=== PATIENT | male | born 1945 | race African-American/Black ===

== ENCOUNTER 2023-01-22 08:08 | Inpatient (IN) ==
--- NOTE | 2023-01-22 08:19 | DR.CP ---
HPI Time Seen Time Seen by Provider: 01/22/23 08:19 HPI Comment HPI Comment: PATIENT IS 77YR OLD MALE IN ER WITH HIS Complaint Chief Complaint Doctor Comments: SOB, GENERALIZED WEAKNESS. COVID-19 Coronavirus risk:travel/contact w/high risk person: No Has patient experienced Coronavirus symptoms: No Reviewed Nurses Notes Review: Yes PMH PMH Past Surgical History: Yes ROS Review of Systems Constitutional: Weakness and Fatigue; negative Fever Eyes: No Symptoms Reported; negative Blurred Vision ENTM: No Symptoms Reported; negative Nose Discharge or Nose Congestion Respiratoy: Short of Breath; negative Moist Cough or Wheezing Cardiovascular: No Symptoms Reported; negative Chest Pain Gastrointestinal/Abdominal: No Symptoms Reported; negative Abdominal Pain, Diarrhea, Nausea or Vomiting Genitourinary: No Symptoms Reported; negative Dysuria Musculoskeletal: Leg (LEG PAIN) Integumentary: No Symptoms Reported; negative Rash or Juandice Hematologic/Lymphatic: No Symptoms Reported; negative Easy Bruising Endocrine: Increased Thirst; negative Increased Urine Psychiatric: No Symptoms Reported All Other Systems: Reviewed and Negative PE Vitals Vitals: Vital Signs Temperature 97.8 F Pulse Rate 70 Pulse Rate 70 Pulse Rate 66 Pulse Rate 68 Pulse Rate 69 Pulse Rate 63 Pulse Rate 65 Pulse Rate 66 Pulse Rate 69 Pulse Rate 71 Pulse Rate 74 Pulse Rate 75 Pulse Rate 75 Pulse Rate 75 Pulse Rate 77 Pulse Rate 76 Pulse Rate 82 Pulse Rate 80 Pulse Rate 79 Pulse Rate 81 Pulse Rate 79 Pulse Rate 78 Pulse Rate 79 Pulse Rate 79 Pulse Rate 79 Pulse Rate 80 Pulse Rate 81 Pulse Rate 84 Pulse Rate 87 Pulse Rate 86 Pulse Rate 86 Pulse Rate 86 Pulse Rate 90 Pulse Rate 90 Pulse Rate 92 Pulse Rate 92 Pulse Rate 92 Pulse Rate 94 Pulse Rate 93 Pulse Rate 93 Pulse Rate 93 Pulse Rate 94 Pulse Rate 94 Pulse Rate 96 Pulse Rate 96 Respiratory Rate 24 Respiratory Rate 26 Respiratory Rate 22 Respiratory Rate 24 Respiratory Rate 10 Respiratory Rate 10 Respiratory Rate 11 Respiratory Rate 11 Respiratory Rate 10 Respiratory Rate 14 Respiratory Rate 16 Respiratory Rate 15 Respiratory Rate 29 Respiratory Rate 14 Respiratory Rate 22 Respiratory Rate 20 Respiratory Rate 30 Respiratory Rate 44 Respiratory Rate 52 Respiratory Rate 49 Respiratory Rate 38 Respiratory Rate 20 Respiratory Rate 17 Respiratory Rate 31 Respiratory Rate 18 Respiratory Rate 34 Respiratory Rate 24 Respiratory Rate 24 Respiratory Rate 31 Respiratory Rate 24 Respiratory Rate 28 Respiratory Rate 23 Respiratory Rate 30 Respiratory Rate 23 Respiratory Rate 27 Respiratory Rate 22 Respiratory Rate 25 Respiratory Rate 22 Respiratory Rate 16 Respiratory Rate 19 Respiratory Rate 26 Respiratory Rate 27 Respiratory Rate 28 Respiratory Rate 28 Respiratory Rate 28 Blood Pressure 131/67 Blood Pressure 95/55 Blood Pressure 96/56 Blood Pressure 87/50 Blood Pressure 99/56 Blood Pressure 107/56 Blood Pressure 106/53 Blood Pressure 106/53 Blood Pressure 100/48 Blood Pressure 100/48 Blood Pressure 112/57 Blood Pressure 106/55 Blood Pressure 103/68 Blood Pressure 101/58 Blood Pressure 103/61 Blood Pressure 108/53 Blood Pressure 103/57 Blood Pressure 99/63 Blood Pressure 120/71 Blood Pressure 116/66 Blood Pressure 112/57 Blood Pressure 116/56 Blood Pressure 111/56 Blood Pressure 115/63 Blood Pressure 108/57 Blood Pressure 100/55 Blood Pressure 127/57 Blood Pressure 114/61 Blood Pressure 109/56 Blood Pressure 112/57 Blood Pressure 113/61 Blood Pressure 118/61 Blood Pressure 121/60 Blood Pressure 115/57 Blood Pressure 115/57 O2 Sat by Pulse Oximetry 93 O2 Sat by Pulse Oximetry 89 O2 Sat by Pulse Oximetry 98 O2 Sat by Pulse Oximetry 98 O2 Sat by Pulse Oximetry 97 O2 Sat by Pulse Oximetry 100 O2 Sat by Pulse Oximetry 97 O2 Sat by Pulse Oximetry 100 O2 Sat by Pulse Oximetry 100 O2 Sat by Pulse Oximetry 100 O2 Sat by Pulse Oximetry 100 O2 Sat by Pulse Oximetry 95 O2 Sat by Pulse Oximetry 95 O2 Sat by Pulse Oximetry 94 O2 Sat by Pulse Oximetry 93 O2 Sat by Pulse Oximetry 92 O2 Sat by Pulse Oximetry 91 O2 Sat by Pulse Oximetry 92 O2 Sat by Pulse Oximetry 93 O2 Sat by Pulse Oximetry 93 O2 Sat by Pulse Oximetry 93 O2 Sat by Pulse Oximetry 92 O2 Sat by Pulse Oximetry 93 O2 Sat by Pulse Oximetry 93 O2 Sat by Pulse Oximetry 93 O2 Sat by Pulse Oximetry 59 O2 Sat by Pulse Oximetry 93 O2 Sat by Pulse Oximetry 94 O2 Sat by Pulse Oximetry 93 O2 Sat by Pulse Oximetry 93 O2 Sat by Pulse Oximetry 93 O2 Sat by Pulse Oximetry 92 O2 Sat by Pulse Oximetry 88 O2 Sat by Pulse Oximetry 85 O2 Sat by Pulse Oximetry 84 General Limitations: No Limitations General Appearance: Alert and In Distress Head Head Exam: Normal Inspection Eyes Eye exam: Normal Appearance ENT ENT Exam: Normal Exam, Normal Oropharynx, Normal External Ear Exam and TM's Normal Bilaterally Chest Chest Inspection: Normal Inspection and Symmetric Chest Wall Rise; negative Tenderness Respiratory Respiratory Exam: Normal Lung Sounds Bilat; negative Accessory Muscle Use, Chest Wall Tenderness or Respiratory Distress Respiratory Exam: Bilateral: Rhonchi Cardiovascular Cardiovascular Exam: Regular Rate, Normal Rhythm and Normal Heart Sounds; negative Systolic Murmur or Diastolic Murmur Abdominal Exam Abdominal Exam: Normal Inspection, Normal Bowel Sounds and Soft; negative Tenderness Extremities Extremities Exam: Normal Inspection and Normal Capillary Refill Back Back Exam: Normal Inspection Neurologic Neurological Exam: Alert; negative Motor Sensory Deficit Psychiatric Psychiatric Exam: Normal Affect and Normal Mood Skin Skin Exam: Intact ROR Labs Reviewed Result Diagrams: 01/26/23 03:41 01/26/23 03:41 Laboratory: 01/22/23 08:55 Blood Blood Culture - Final 01/22/23 08:27 Blood Blood Culture - Final 01/22/23 12:50 Urine,Catheterized Urine Culture - Final WBC 9.1 X10^3/uL (3.6-10.0) 01/22/23 08:27 RBC 3.68 X10^6/uL (4.7-6.0) L 01/22/23 08:27 Hgb 11.0 g/dL (13.5-18.0) L 01/22/23 08:27 Hct 32.7 % (42.0-54.0) L 01/22/23 08:27 MCV 89.0 fL (80.0-100.0) 01/22/23 08:27 MCH 30.0 pg (27.0-34.0) 01/22/23 08:27 MCHC 33.7 g/dL (33.0-35.0) 01/22/23 08:27 RDW 14.1 % (11.6-16.5) 01/22/23 08:27 Plt Count 192 X10^3/uL (150.0-450.0) 01/22/23 08:27 MPV 8.7 fL (7.4-11.0) 01/22/23 08:27 Neut % (Auto) 87.5 % (42.0-75.0) H 01/22/23 08:27 Lymph % (Auto) 5.2 % (21.0-51.0) L 01/22/23 08:27 [place] % (Auto) 6.1 % (0.0-13.0) 01/22/23 08:27 Eos % (Auto) 1.0 % (0.9-2.9) 01/22/23 08:27 Baso % (Auto) 0.2 % (0.2-1.0) 01/22/23 08:27 Neut # (Auto) 8.0 x10^3/uL (2.2-4.8) H 01/22/23 08:27 Lymph # (Auto) 0.5 X10^3/uL (1.3-2.9) L 01/22/23 08:27 [place] # (Auto) 0.6 x10^3/uL (0.3-0.8) 01/22/23 08:27 Eos # (Auto) 0.1 x10^3/uL (0.0-0.2) 01/22/23 08:27 Baso # (Auto) 0.0 X10^3/uL (0.0-0.1) 01/22/23 08:27 Absolute Nucleated RBC 0.0 /100WBC 01/22/23 08:27 Sample Site Rbra 01/22/23 08:17 ABG pH 7.440 (7.35-7.45) 01/22/23 08:17 ABG pCO2 31.0 mmHg (35.0-45.0) L 01/22/23 08:17 ABG pO2 48.0 mmHg (80.0-100.0) L* 01/22/23 08:17 ABG HCO3 21.1 mmol/L (22-26) L 01/22/23 08:17 ABG O2 Saturation 85.0 % (90-100) L 01/22/23 08:17 ABG Base Excess -2.2 mmol/L (-2.0-2.0) L 01/22/23 08:17 Daryl Test N/a 01/22/23 08:17 A-a Gradient 63.0 mmHg 01/22/23 08:17 FiO2 21.0 01/22/23 08:17 Blood Gas Comments Pt liang well elj 01/22/23 08:17 Sodium 132 mmol/L (136-145) L 01/22/23 08:27 Corrected Sodium 133 mmol/L (136-145) L 01/22/23 08:27 Potassium 4.6 mmol/L (3.5-5.1) 01/22/23 08:27 Chloride 95 mmol/L (98-107) L 01/22/23 08:27 Carbon Dioxide 22.4 mmol/L (21-32) 01/22/23 08:27 BUN 103 mg/dL (7-18) H 01/22/23 08:27 Creatinine 5.61 mg/dL (0.70-1.30) H 01/22/23 08:27 Est GFR (MDRD) Af Amer 13 (>60) L 01/22/23 08:27 Est GFR (MDRD) Non-Af 11 (>60) L 01/22/23 08:27 Glucose 127 mg/dL (65-99) H 01/22/23 08:27 Lactic Acid 1.4 mmol/L (0.4-2.0) 01/22/23 08:27 Calcium 8.1 mg/dL (8.5-10.1) L 01/22/23 08:27 Corrected Calcium 8.7 mg/dL (8.5-10.1) 01/22/23 08:27 Total Bilirubin 0.90 mg/dL (0.2-1.0) 01/22/23 08:27 AST 42 Units/L (15-37) H 01/22/23 08:27 ALT 17 Units/L (12-78) 01/22/23 08:27 Alkaline Phosphatase 69 Units/L (46-116) 01/22/23 08:27 Creatine Kinase 1051 Units/L (39-308) H 01/22/23 08:27 Troponin I High Sens 57.8 ng/L (4.0-60.0) 01/22/23 08:27 B-Natriuretic Peptide 38.2 pg/mL (0-79) 01/22/23 08:27 Total Protein 7.1 g/dL (6.4-8.2) 01/22/23 08:27 Albumin 3.2 g/dL (3.4-5.0) L 01/22/23 08:27 Globulin 3.9 g/dL (2.5-4.5) 01/22/23 08:27 Albumin/Globulin Ratio 0.8 Ratio (1.1-2.1) L 01/22/23 08:27 Specimen Type Catherized urine 01/22/23 12:50 Urine Color Dark yellow (YELLOW) 01/22/23 12:50 Urine Appearance Cloudy (CLEAR) 01/22/23 12:50 Urine pH 5.0 (5.0 - 8.0) 01/22/23 12:50 Ur Specific [place] 1.020 (1.000-1.030) 01/22/23 12:50 Urine Protein 2+ (NEGATIVE) 01/22/23 12:50 Urine Glucose (UA) Negative (NEGATIVE) 01/22/23 12:50 Urine Ketones Negative (NEGATIVE) 01/22/23 12:50 Urine Blood 5+ (NEGATIVE) 01/22/23 12:50 Urine Nitrite Negative (NEGATIVE) 01/22/23 12:50 Urine Bilirubin Negative (NEGATIVE) 01/22/23 12:50 Urine Urobilinogen Normal (NORMAL) 01/22/23 12:50 Ur Leukocyte Esterase 1+ (NEGATIVE) 01/22/23 12:50 Urine RBC Tntc /HPF (0-3) A 01/22/23 12:50 Urine WBC 5-10 /HPF (0-5) A 01/22/23 12:50 Ur Squamous Epith Cells Few /HPF (NEGATIVE) 01/22/23 12:50 Urine Bacteria Trace /HPF (NEGATIVE) 01/22/23 12:50 Urine Mucus Few /HPF (NEGATIVE) 01/22/23 12:50 Ur Culture Indicated? Yes/culture set up 01/22/23 12:50 Opioid Opioid Risk Tool Total: 0 Total Score Risk Category: Low Risk Copyright: Kd BALES predicting aberrant behaviors Discharge Plan Diagnosis Discharge Problem: Hypoxia Acute renal failure Qualifiers: Acute renal failure type: unspecified Qualified Code(s): N17.9 - Acute kidney failure, unspecified Rhabdomyolysis Qualifiers: Rhabdomyolysis type: non-traumatic Qualified Code(s): M62.82 - Rhabdomyolysis Maxillary sinusitis Qualifiers: Chronicity: acute Recurrence: not specified as recurrent Qualified Code(s): J01.00 - Acute maxillary sinusitis, unspecified Discharge Plan Patient Disposition: ADMITTED INPATIENT Condition: Stable
[2023-01-22 08:28] LABS: ABG BASE EXCESS -2.2 mmol/L (-2.0-2.0); ABG HCO3 21.1 mmol/L (22-26)
--- NOTE | 2023-01-22 08:36 | EKG ---
Test Reason : sHORT OF BREATH Blood Pressure : */* mmHG Vent. Rate : 92 BPM Atrial Rate : 92 BPM P-R Int : 178 ms QRS Dur : 104 ms QT Int : 322 ms P-R-T Axes : 36 40 7 degrees QTc Int : 398 ms Normal sinus rhythm Minimal voltage criteria for LVH, may be normal variant ( Vesper product ) Borderline ECG No previous ECGs available Confirmed by Edson Tompkins ([id number]) on 01/22/2023 12:52:48 PM Referred By: Confirmed By: Edson Tompkins
[2023-01-22 09:00] LABS: BASOPHILS % (AUTO) 0.2 % (0.2-1.0); EOSINOPHILS # (AUTO) 0.1 x10^3/uL (0.0-0.2); HEMATOCRIT 32.7 % (42.0-54.0); LYMPHOCYTES # (AUTO) 0.5 X10^3/uL (1.3-2.9); LYMPHOCYTES % (AUTO) 5.2 % (21.0-51.0); MEAN CORPUSCULAR HGB CONC 33.7 g/dL (33.0-35.0); MEAN PLATELET VOLUME 8.7 fL (7.4-11.0); MONOCYTES # (AUTO) 0.6 x10^3/uL (0.3-0.8); MONOCYTES % (AUTO) 6.1 % (0.0-13.0); NEUTROPHILS % (AUTO) 87.5 % (42.0-75.0); PLATELET COUNT 192 X10^3/uL (150.0-450.0); RED BLOOD COUNT 3.68 X10^6/uL (4.7-6.0); RED CELL DISTRIBUTION WIDTH 14.1 % (11.6-16.5); WHITE BLOOD COUNT 9.1 X10^3/uL (3.6-10.0)
[2023-01-22 09:14] LABS: LACTIC ACID 1.4 mmol/L (0.4-2.0)
[2023-01-22 09:24] LABS: ALBUMIN 3.2 g/dL (3.4-5.0); CALCIUM 8.1 mg/dL (8.5-10.1); CARBON DIOXIDE 22.4 mmol/L (21-32); COR CA(FOR HYPOALB) 8.7 mg/dL (8.5-10.1); CREATININE 5.61 mg/dL (0.70-1.30); POTASSIUM 4.6 mmol/L (3.5-5.1); TOTAL PROTEIN 7.1 g/dL (6.4-8.2)
[2023-01-22] MEDS ORDERED: NORCO 10/325 TAB PO ONE (09:58)
[2023-01-22] MEDS ORDERED: NORCO 10/325 TAB ONE (09:59)
--- NOTE | 2023-01-22 10:42 | CT ---
HISTORYAltered mental statusSTUDYCT head without contrastTechnique: Axial noncontrast images with coronal and sagittal reformats. Dose reduction procedures were used with mA/kv adjusted for body size.COMPARISONNoneFINDINGSThe ventricles are normal in size shape and position. There are no focal areas of abnormal attenuation to suggest recent or remote CVA, hemorrhage, mass lesion, or extra-axial fluid collection. The visualized sinuses are clear with the exception of mucosal inflammatory changes in the left maxillary sinus within which there is also a 3.2 x 1.7 cm masslike density containing some areas of increased attenuation possibly calcification possibly fungal sinusitis. MRI is recommended in order to entirely exclude a left maxillary sinus neoplasm. The calvarium is intact.IMPRESSIONNo acute intracranial abnormality identifiedMucosal changes in the left maxillary sinus where there is also a 3.2 x 1.7 cm masslike density containing some areas of increased attenuation possibly calcification, possibly fungal sinusitis. MRI is recommended in order to entirely exclude a left maxillary sinus neoplasm.Electronically signed by: ANKIT ARCE (Jan 22, 2023 10:41:31)
--- NOTE | 2023-01-22 10:52 | RAD ---
HISTORYSOB Relevant Clinical InformationSTUDYCHEST, 1 VIEWCOMPARISONNone availableFINDINGSThe trachea is midline. There is mild cardiomegaly. There is patchy ground-glass radiopacities in the bases right more than left at the perihilar region. There is subcutaneous emphysema in the right supraclavicular region, no evidence of pneumothorax or pleural effusions.IMPRESSIONRight supraclavicular subcutaneous emphysema. No pneumothorax. Patchy radiopacities at the right lower lobe in the perihilar region.Electronically signed by: Sherlyn Owens (Jan 22, 2023 10:51:38)
[2023-01-22] MEDS ORDERED: NS 1,000 ML IV 1,000 ML ONE (12:09)
[2023-01-22] MEDS ORDERED: NS 1,000 ML IV 1,000 ML IV ONE (12:14)
[2023-01-22] MEDS ORDERED: ROCEPHIN VIAL 1 GRAM 1 G in NS 100 ML IV 100 ML IV ONE (12:35)
[2023-01-22] MEDS ORDERED: ROCEPHIN VIAL 1 GRAM ONE (12:38)
[2023-01-22] MEDS ORDERED: NS 50 ML IV 50 ML IV ONE (12:38)
[2023-01-22 12:59] LABS: BILIRUBIN,URINE NEGATIVE (NEGATIVE); BLOOD/HEMOGLOBIN,URINE 5+ (NEGATIVE); GLUCOSE, URINE NEGATIVE (NEGATIVE); KETONES,URINE NEGATIVE (NEGATIVE); LEUKOCYTE ESTERASE ,URINE 1+ (NEGATIVE); NITRITES,URINE NEGATIVE (NEGATIVE); PROTEIN,URINE 2+ (NEGATIVE); UROBILINOGEN,URINE NORMAL (NORMAL)
[2023-01-22 13:23] LABS: APPEARANCE,URINE CLOUDY (CLEAR); COLOR,URINE DARK YELLOW (YELLOW)
[2023-01-22 13:26] LABS: BACTERIA,URINE TRACE /HPF (NEGATIVE); RBC,URINE TNTC /HPF (0-3); SQUAMOUS EPITHELIAL CELL,UR FEW /HPF (NEGATIVE)
--- NOTE | 2023-01-22 14:44 | CT ---
HISTORYsubcutaneous emphysema, back sx 4 days ago. Hypertension. Renal disease.STUDYSOFT TISSUE NECK W/O CONCOMPARISONNoneTECHNIQUEMultiple axial images of the neck soft tissues were obtained without IV contrast. Coronal and sagittal reformats were made and reviewed. Dose reduction techniques included Automated Exposure Control (AEC) and adjustment of mA and kV.FINDINGSThere is emphysema in the right neck in superficial and deep structures. Mostly located posteriorly deep to the sternocleidomastoid muscle extending into the right axilla but also superficially in the subcutaneous tissue in the right. The finding is likely from the patient's prior surgery.A trace amount air anterior left apex is probably extrapleural rather than within the pleural space. See image 109 series 3.Adenoids, soft palate, tonsils, epiglottis, and prevertebral soft tissues are not enlarged.There is preservation of the pharyngeal and tracheal airway. Vocal cords are apposed in the midline.Parotid glands, submandibular glands, and thyroid are unremarkable. No mass or lymphadenopathy.Partially calcified polyp in the left maxillary sinus could be fungal in origin. This is associated with mucosal thickening in the sinus. No fluid to suggest acute sinusitis.IMPRESSION1. Subcutaneous tissue throughout the right neck and upper right chest, likely from the patient's previous surgery2. Chronic left maxillary sinusitis with probable polypElectronically signed by: Stanford Morelos (Jan 22, 2023 14:42:56)
--- NOTE | 2023-01-22 14:45 | CT ---
HISTORYSubcutaneous emphysemaSTUDYCT chest without contrastTechnique: Axial noncontrast images with coronal and sagittal reformats. Dose reduction procedures were used with mA/kv adjusted for body size.COMPARISONNoneFINDINGSExamination of the mediastinum demonstrated no evidence for mediastinal masses, enlarged mediastinal or enlarged hilar adenopathy to the limitations of an unenhanced examination. There is dilatation of the ascending aorta maximum AP diameter 4.5 cm. Maximum transverse diameter 4 cm. The heart is enlarged. No pleural effusions are identified. There is subcutaneous emphysema involving the right chest anteriorly, laterally and posteriorly and extending upward into the right neck. The etiology of the subcutaneous emphysema is a small less than 20 percent anteriorly layering pneumothorax. The upper lung bolaños are clear. Consolidating pneumonia is present in both lower lobes right greater than left. No nodules or masses are identified.[id number] percent anteriorly layering right pneumothorax likely the etiology of the right chest wall and neck subcutaneous emphysemaBilateral lower lobe consolidating pneumoniasDilatation of the ascending aorta maximum AP diameter 4.5 cm, maximum transverse diameter 4 cmElectronically signed by: ANKIT ARCE (Jan 22, 2023 14:44:49)
--- NOTE | 2023-01-22 14:54 | CT ---
ABDOMEN/PELVIS W/O CONHistory: "Subcutaneous emphysema, back sx 4 days ago"Technique: CT images of the abdomen and pelvis were obtained without IV or oral contrast. Reformatted images in the coronal and sagittal planes also generated for review. Automatic exposure was utilized.Comparison:No prior exams are available for comparison.Findings: Limited images through the lower chest demonstrate moderate subsegmental atelectasis, with or without superimposed pneumonia of the imaged dependent lower lobes. Partially visualized right basilar pneumothorax also seen. Please refer to the patient's CT chest report for findings above the diaphragm. Previous fusion and interbody spacer placement of the lumbosacral spine noted.Please note that evaluation for soft tissue pathology is limited without IV contrast. Evaluation of the GI tract is also limited without oral contrast.Accounting for this, there is subcutaneous emphysema/soft tissue gas throughout the right paraspinal, right flank, right abdominal wall and imaged right chest wall soft tissues, which given patient history of recent back surgery is presumably postsurgical in nature.There is also small gas along the left psoas muscle as well as small volume fluid as well as gas, which is either intraperitoneal or within the right retroperitoneal space (for example see axial images 26-41 series 3).Within the limits of a noncontrast exam, the unenhanced liver, nondistended gallbladder, spleen, pancreas, adrenals and kidneys demonstrate no acute abnormality. There is no urolithiasis or obstructive uropathy.There are mildly dilated fluid-filled loops of distal small bowel within the lower abdomen, measuring up to 3.3 cm in maximum diameter. No definite transition point is identified and findings are favored to reflect postoperative ileus. The colon and rectum demonstrate no gross acute abnormality.Abdominal aorta is minimally calcified without aneurysm. There is a small amount of gas within the urinary bladder, which is likely related to Wylie catheter placement. Prostate gland is markedly enlarged. The Wylie catheter retention balloon may also be malpositioned, possibly within the prostatic urethra (For example see sagittal image 40). There is no bulky lymphadenopathy.Impression:1. Subcutaneous emphysema and soft tissue gas of the right paraspinal, right flank, right abdominal wall and imaged right chest wall soft tissues, which given provided history of recent back surgery is presumably postsurgical in nature. Superimposed soft tissue infection/cellulitis/necrotizing fasciitis felt less likely but not excluded and clinical correlation is necessary.2. Gas along the left psoas muscle as well as small fluid and gas, which is either intraperitoneal in location or within the right retroperitoneal space as above. These findings are also presumably postsurgical in nature. However, superimposed infection/developing abscess is again not excluded and clinical correlation is necessary.3. Atelectasis, with or without superimposed pneumonia of the imaged lung bases and partially visualized right basilar pneumothorax. Please refer to the patient's CT chest report for findings above the diaphragm.4. Fluid-filled borderline dilated loops of distal small bowel, which are favored to reflect postoperative ileus. However, early/developing distal small bowel obstruction not excluded. Correlation with patient's bowel habits recommended.5. Prostatomegaly. Lab correlation with PSA levels recommended. There is also suspected malpositioning of the patient's Wylie catheter as above. Clinical correlation and repositioning recommended as indicated.6. Please refer to above report for additional nonacute/chronic findings.Electronically signed by: MARLENY SHETH (Jan 22, 2023 14:53:43)
[2023-01-22 15:28] VITALS: BMI 26.6
[2023-01-22] MEDS: NS 1,000 ML IV 1,000 ML IV SCH (15:43)
[2023-01-22] MEDS: NORCO 10/325 TAB PO PRN (19:44)
[2023-01-22] MEDS: MILK OF MAGNESIA PO SCH (20:26)
[2023-01-22] MEDS ORDERED: COLACE CAP 100 MG PO SCH (21:00)
--- NOTE | 2023-01-22 22:29 | RAD ---
STUDY: SINGLE VIEW OF THE ABDOMENCOMPARISON: NoneHISTORY: Reason For StudyFINDINGS:Bowel gas pattern is nonobstructive.There is no gross evidence of free air in the abdomen.There are no abnormal masses or calcification seen.The visualized bones demonstrate degenerative changes with postoperative changes throughout the lumbar spineModerate to large amount of fecal material is seen throughout the GI tract suggesting constipation.IMPRESSION:1. THE BOWEL GAS PATTERN IS NONOBSTRUCTIVE. Electronically signed by: Brody Urbano (Jan 22, 2023 22:27:32)
[2023-01-23] MEDS: NS 1,000 ML IV 1,000 ML IV SCH ×2 (04:00→19:05)
[2023-01-23 05:08] LABS: CALCIUM 8.1 mg/dL (8.5-10.1); CARBON DIOXIDE 24.6 mmol/L (21-32); CREATININE 5.69 mg/dL (0.70-1.30); POTASSIUM 4.5 mmol/L (3.5-5.1)
[2023-01-23 05:09] LABS: BASOPHILS % (AUTO) 0.3 % (0.2-1.0); EOSINOPHILS # (AUTO) 0.3 x10^3/uL (0.0-0.2); HEMATOCRIT 28.1 % (42.0-54.0); HEMOGLOBIN 9.6 g/dL (13.5-18.0); LYMPHOCYTES # (AUTO) 0.7 X10^3/uL (1.3-2.9); MEAN CORPUSCULAR HEMOGLOBIN 30.5 pg (27.0-34.0); MEAN CORPUSCULAR HGB CONC 34.4 g/dL (33.0-35.0); MEAN CORPUSCULAR VOLUME 88.7 fL (80.0-100.0); MEAN PLATELET VOLUME 8.6 fL (7.4-11.0); MONOCYTES # (AUTO) 1.5 x10^3/uL (0.3-0.8); MONOCYTES % (AUTO) 11.6 % (0.0-13.0); NEUTROPHILS # (AUTO) 10.8 x10^3/uL (2.2-4.8); NEUTROPHILS % (AUTO) 81.1 % (42.0-75.0); PLATELET COUNT 189 X10^3/uL (150.0-450.0); RED BLOOD COUNT 3.16 X10^6/uL (4.7-6.0); RED CELL DISTRIBUTION WIDTH 14.2 % (11.6-16.5); WHITE BLOOD COUNT 13.3 X10^3/uL (3.6-10.0)
[2023-01-23] MEDS: MILK OF MAGNESIA PO SCH ×2 (08:14→20:15)
[2023-01-23 08:56] LABS: ABG BASE EXCESS -2.9 mmol/L (-2.0-2.0)
[2023-01-23] MEDS: INVanz INJ 1 GRAM VIAL 0.5 G in NS 50 ML IV 50 ML IV SCH (09:32)
[2023-01-23] MEDS: COLACE CAP 100 MG PO SCH ×2 (09:32→20:16)
--- NOTE | 2023-01-23 13:44 | DR.CONSULT ---
CONSULT Consultation for Day of: Date: 01/22/23 Chief Complaint Chief Complaint: Decrease in mental status , Acute kidney injury, right pneumothorax Allergies Allergies Allergy/AdvReac Type Severity Reaction Status Date / Time No Known Allergies Allergy Verified 01/22/23 08:37 History of Present Illness History of Present Illness: This 77 year-old male had back surgery in [place], [place] approximately 5 days prior to this of the lumber area performed with a right lateral approach .The details of this are unknown .He presented yesterday to the hospital in [place], [place] where the family had noted a decrease in his mental status and his family was taking his blood pressure and reported he was hypotensive. He was admitted and observed overnight at the hospital in [place], [place]. He was discharged and came to our emergency room where he was evaluated with CT scans of brain, chest and abdomen. He was noted to have subcutaneous emphysema of the right chest and neck . CT showed a 20% right sided pneumothorax. No pneumothorax noted on the CXR. He denied shortness of breath . I was asked to evaluate him in regard to the right pneumothorax. He has a history of chronic kidney disease , the extent of which is unknown at this time , and his has creatinine > 5 and BUN > 100. He had failure to thrive after his surgery with gradual decline in his mental status which has greatly improved with IV hydration. At the time of my exam on the afternoon of 01/22/2023 he was alert and oriented x 3 . Past Medical History Past Medical History: Arthritis, Dyslipidemia, Gout, Hypertension and Renal Disease Past Surgical History Surgical History: Ortho Surgery and Other Family History Family Medical History: Diabetes Mellitus, Cancer, [place] and Hypertension Social History Does patient currently use any type of tobacco product: No Have you used tobacco products in the last 12 months: No Type of Tobacco Use: None Does any household member use tobacco: No Alcohol Use: None Drug Use: None Medications Home Medications: No Known Allergies Allergy (Verified 01/22/23 08:37) CONTINUE taking the following medications allopurinol 100 mg tablet 2 tab PO QDAY 01/22/23 [History] gabapentin 300 mg capsule 1 cap PO TID 01/22/23 [History] hydralazine 50 mg tablet 1 tab PO BID 01/22/23 [History] hydrocodone 10 mg-acetaminophen 325 mg tablet 1 tab PO Q8H 01/22/23 [History] olmesartan 40 mg tablet 1 tab PO QDAY 01/22/23 [History] omeprazole 20 mg capsule,delayed release 1 cap PO QDAY 01/22/23 [History] oxycodone-acetaminophen 10 mg-325 mg tablet 1 tab PO QID PRN 01/22/23 [History] simvastatin 20 mg tablet 1 tab PO QPM 01/22/23 [History] tamsulosin 0.4 mg capsule 1 cap PO QDAY 01/22/23 [History] tizanidine 4 mg tablet 1 tab PO TID PRN 01/22/23 [History] tramadol 50 mg tablet 1 tab PO TID PRN 01/22/23 [History] valsartan 320 mg-hydrochlorothiazide 25 mg tablet 1 tab PO QDAY 01/22/23 [History] Review of Systems Constitutional: See HPI Eyes: No Symptoms Reported ENT: No Symptoms Reported Respiratory: denies No Symptoms Reported, See HPI, Cough, Dry, Shortness of Breath, Hemoptysis, SOB with Excertion, Pleuritic Pain, Sputum, Wheezing or Other Cardiovascular: No Symptoms Reported Gastrointestinal: No Symptoms Reported Genitourinary: No Symptoms Reported Musculoskeletal: No Symptoms Reported Skin: No Symptoms Reported Neurological: See HPI Physical Exam Vital Signs: Vital Signs Temperature 99.1 F Pulse Rate [Right Radial] 78 Respiratory Rate 20 Blood Pressure [Right Arm] 138/65 O2 Sat by Pulse Oximetry 96 Oriented: Normal, Time, Person and Place Eyes: Normal Ear: Normal Nose: Normal Throat: Normal Respiratory: Diminished Throughout Cardiovascular: Normal : Normal Auscultation: Bowel Sounds: Normal Palpation: Normal Tenderness: Normal Skin: Other (Right lateral flank surgical incision transverse and just below the 12th rib. Subcutaneous emphysema of the right chest and right neck ) Musculoskeletal: Normal Psychiatric: Normal Mood Description: Calm Affect: Normal Speech Pattern: Clear Plan (1) Pneumothorax, right: Status: Acute Plan: At this time he is asymptomatic and the pneumothorax only noted on the CT scan. This probably occurred from a violation of the pleural during the right lateral approach to his back surgery. Will follow this with sequential exams and CXR (2) Failure to thrive in adult: Status: Acute Plan: Patient improved with hydration. Will encourage po intake . (3) Acute renal failure: Status: Acute Qualifiers: Acute renal failure type: unspecified Qualified Code(s): N17.9 - Acute kidney failure, unspecified Plan: continue to hydrate patient and follow his lab work (4) Rhabdomyolysis: Status: Acute Qualifiers: Rhabdomyolysis type: non-traumatic Qualified Code(s): M62.82 - Rhabdomyolysis Plan: Rising creatinine kinase secondary to his failure to thrive and being bedridden, acute kidney injury, and dehydration. Will continue to rehydrate the patient and follow his creatinine kinase and renal function. He may require alkalinization of the urine.
--- NOTE | 2023-01-23 13:46 | DR.H&P ---
H&P - History & Physical for Day of: H&P Date: 01/22/23 - Chief Complaint Chief Complaint: WEAKNESS, SOB, LOW BLOOD PRESSURE - History of Present Illness History of Present Illness: IS A 77 YEAR OLD PATIENT OF OURS. HE PRESENTED TO THE ER WITH COMPLAINTS OF GENERALLIZED WEAKNESS, SHORTNESS OF BREATH, LOW BLOOD PRESSURE, AND ALTERED MENTAL STATUS. HIS DAUGHTER REPORTS THAT HIS SYMPTOMS STARTED ONE DAY PRIOR. SHE REPORTS HTAT HE RECENTLY HAD HIS 5TH BACK SURGERY ON 01/18/23. HIS PMH INCLUDES: HTN, GERD, RENAL DISEASE, CHRONIC LOW BACK PAIN, CATARACT SURGERY, AND BACK SURGERY X 5. ON ARRIVAL TO THE HOSPITAL, HIS VITALS WERE 97.8-96-28-84% ROOM AIR-115/57. LABS WERE OBTAINED. LABS WERE OBTAINED. WBC 9.1, RBC 3.68, HGB 11.0, HCT 32.7, PLT COUNT 192, SODIUM 132, POTSSIUM 4.6, CHLORIDE 95, BUN 103, CREATININE 5.61, GLUCOSE 127, LACTIC ACID 1.4, CALCIUM 8.1, TOTAL BILI 0.90, AST 42, ALT 17, ALK PHOS 69, CREATINE KINASE 1051, TROPONIN 57.8, TOTAL PROTEIN 7.1, ALBUMIN 3.2, BNP 38.2. A URINALYSIS WAS OBTAINED AND REVEALED: RBC TNTC, WBC 5-10, LEUKOCYTES 1+, BACTERIA TRACE. BLOOD CULTURES WERE SET UP. A CHEST XRAY WAS OBTAINED AND REVEALED: Right supraclavicular subcutaneous emphysema. No pneumothorax. Patchy radiopacities at the right lower lobe in the perihilar region. EKG REVEALED: NORMAL SINUS RHYTHM WITH HR [address] WAS OBTAINED AND REVEALED: No acute intracranial abnormality identified. Mucosal changes in the left maxillary sinus where there is also a 3.2 x 1.7 cm masslike density containing some areas of increased attenuation possibly calcification, possibly fungal sinusitis. MRI is recommended in order to entirely exclude a left maxillary sinus neoplasm. A KUB WAS OBTAINED AND REVEALED: 1. THE BOWEL GAS PATTERN IS NONOBSTRUCTIVE. A CHEST CT WAS OBTAINED AND REVEALED: 20 percent anteriorly layering right pneumothorax likely the etiology of the right chest wall and neck subcutaneous emphysema. Bilateral lower lobe consolidating pneumonias. Dilatation of the ascending aorta maximum AP diameter 4.5 cm, maximum transverse diameter 4 cm. SOFT TISSUE NECK CT WAS OBTAINED AND REVEALED: 1. Subcutaneous tissue throughout the right neck and upper right chest, likely fromthe patient's previous surgery 2. Chronic left maxillary sinusitis with probable polyp. AN ABDOMEN/PELVIS CT WITHOUT CONTRAST WAS OBTAINED AND REVEALED: 1. Subcutaneous emphysema and soft tissue gas of the right paraspinal, right flank, right abdominal wall and imaged right chest wall soft tissues, which given provided history of recent back surgery is presumably postsurgical in nature. Superimposed soft tissue infection/cellu litis/necrotizing fasciitis felt less likely but not excluded and clinical correlation is necessary. 2. Gas along the left psoas muscle as well as small fluid and gas, which is either intraperitoneal in location or within the right retroperitoneal space as above. These findings are also. presumably postsurgical in nature. However, superimposed infection/developing abscess is again not excluded and clinical correlation is necessary. 3. Atelectasis, with or without superimposed pneumonia of the imaged lung bases and partially visualized right basilar pneumothorax. Please refer to the patient's CT chest report for findings above the diaphragm. 4. Fluid-filled borderline dilated loops of distal small bowel, which are favored to reflect postoperative ileus. However, early/developing distal small bowel obstruction not excluded. Correlation with patient's bowel habits recommended. 5. Prostatomegaly. Lab correlation with PSA levels recommended. There is also suspected malpositioning of the patient's Wylie catheter. BLOOD AND URINE CULTURES WERE SET UP. IN THE ER, SHE WAS GIVEN NORCO 10/325MG X 1 DOSE, A NORMAL SALINE BOLUS, ROCEPHIN 1G IV X 1, COLACE 100MG HS. HE WAS ADMITTED TO THE HOSPITAL FOR FURTHER EVALUATION AND TREATMENT OF ACUTE RENAL FAILURE, HYPOXIA, RHABDOMYOLYSIS, ANEMIA, HYPONATREMIA, MAXILLARY SINUSITIS. SHE WAS STARTED ON NORMAL SALINE AT 75 ML/HR, INVANZ 0.5G IV DAILY, COLACE 100MG BID, NORCO 10/325MG Q8H PRN, MILK OF MAGNESIA 30 ML BID. WE WILL RESUME HIS HOME MEDICATIONS OF PERCOCET, TRAMADOL, TIZANIDINE, TAMSULOSIN, OMEPRAZOLE, OLMESARTAN, AND GABAPENTIN. WE WILL CONSULT , GENERAL SURGEON TO REVIEW SCANS AND MONITOR PATIENT. OTHERWISE, WE WILL FOLLOW- UP WITH AM LABS AND CHEST XRAY AND CONTINUE TO MONITOR. TIME SPENT ON CLINICAL ASSESSMENT, REVIEWING LABS AND IMAGING, DECISION MAKING, AND DOCUMENTATION GREATER THAN 75 MINUTES. - Past Medical History Past Medical History: Hypertension, Dyslipidemia, Renal Disease, Arthritis, Gout - Past Surgical History Surgical History: Ortho Surgery, Other - Family History Family Medical History: Diabetes Mellitus, Cancer, [place], Hypertension - Social History Does patient currently use any type of tobacco product: No Have you used tobacco products in the last 12 months: No Type of Tobacco Use: None Does any household member use tobacco: No Alcohol Use: None Drug Use: None - Review of Systems Constitutional: Weakness Eyes: No Symptoms Reported ENT: No Symptoms Reported Respiratory: Shortness of Breath Cardiovascular: No Symptoms Reported Gastrointestinal: No Symptoms Reported Genitourinary: No Symptoms Reported Musculoskeletal: See HPI Skin: No Symptoms Reported Neurological: Weakness, Confusion - Physical Exam Vital Signs: Vital Signs Temperature 99.9 F Temperature 99.1 F Pulse Rate [Right Radial] 80 Pulse Rate [Right Radial] 78 Respiratory Rate 20 Respiratory Rate 20 Blood Pressure [Right Arm] 147/63 Blood Pressure [Right Arm] 138/65 O2 Sat by Pulse Oximetry 96 O2 Sat by Pulse Oximetry 96 Oriented: Normal, Time, Person, Place Eyes: Normal Ear: Normal Nose: Normal Respiratory: Diminished Throughout Cardiovascular: Normal : Normal Auscultation: Bowel Sounds: Normal Palpation: Spleen Enlarged Tenderness: Normal Skin: Normal, Papular Musculoskeletal: Back:Lumbar, Tender (D) Psychiatric: Normal Mood Description: Calm Speech Pattern: Appropriate - Assessment/Plan (1) Acute renal failure Qualifiers: Acute renal failure type: unspecified Qualified Code(s): N17.9 - Acute kidney failure, unspecified Status: Acute Plan: ADMIT, NORMAL SALINE AT 75 ML/HR, INVANZ 0.5G IV DAILY, COLACE 100MG BID, NORCO 10/325MG Q8H PRN, MILK OF MAGNESIA 30 ML BID. WE WILL RESUME HIS HOME MEDICATIONS OF PERCOCET, TRAMADOL, TIZANIDINE, TAMSULOSIN, OMEPRAZOLE, OLMESARTAN, AND GABAPENTIN. (2) Hypoxia Status: Acute (3) Maxillary sinusitis Qualifiers: Chronicity: acute Recurrence: not specified as recurrent Qualified Code(s): J01.00 - Acute maxillary sinusitis, unspecified Status: Acute (4) Rhabdomyolysis Qualifiers: Rhabdomyolysis type: non-traumatic Qualified Code(s): M62.82 - Rhabdomyolysis Status: Acute (5) Pneumothorax, right Status: Acute (6) Anemia Qualifiers: Anemia type: iron deficiency Iron deficiency anemia type: chronic blood loss Qualified Code(s): D50.0 - Iron deficiency anemia secondary to blood loss (chronic) Status: Acute (7) Failure to thrive in adult Status: Acute - Allergies Allergies/Adverse Reactions: Allergies Allergy/AdvReac Type Severity Reaction Status Date / Time No Known Allergies Allergy Verified 01/22/23 08:37 - Medications Home Medications: Home Medications Medication Instructions Recorded Confirmed allopurinol 100 mg tablet 2 tab PO QDAY 01/22/23 01/22/23 gabapentin 300 mg capsule 1 cap PO TID 01/22/23 01/22/23 hydralazine 50 mg tablet 1 tab PO BID 01/22/23 01/22/23 hydrocodone 10 mg-acetaminophen 1 tab PO Q8H 01/22/23 01/22/23 325 mg tablet olmesartan 40 mg tablet 1 tab PO QDAY 01/22/23 01/22/23 omeprazole 20 mg capsule,delayed 1 cap PO QDAY 01/22/23 01/22/23 release oxycodone-acetaminophen 10 mg-325 1 tab PO QID PRN 01/22/23 01/22/23 mg tablet simvastatin 20 mg tablet 1 tab PO QPM 01/22/23 01/22/23 tamsulosin 0.4 mg capsule 1 cap PO QDAY 01/22/23 01/22/23 tizanidine 4 mg tablet 1 tab PO TID PRN 01/22/23 01/22/23 tramadol 50 mg tablet 1 tab PO TID PRN 01/22/23 01/22/23 valsartan 320 1 tab PO QDAY 01/22/23 01/22/23 mg-hydrochlorothiazide 25 mg tablet
[2023-01-23] MEDS: PriLOSEC PO SCH (14:44)
[2023-01-23] MEDS: BENICAR PO SCH (14:44)
[2023-01-23] MEDS: FLOMAX PO SCH (14:44)
[2023-01-23] MEDS: NEURONTIN CAP 300 MG PO SCH (14:44)
[2023-01-23] MEDS: THORAZINE TAB 25 MG PO SCH ×2 (17:19→20:16)
--- NOTE | 2023-01-23 17:20 | NOTE.SOAP ---
Soap Note Note for Day of Date of Exam: 01/23/23 Subjective Data Subjective Data: Patient alert and oriented x 3 , has hiccups Good quantity of urine output > 1100 since yesterday, Wylie d/c'd but creatinine is still unchanged at 5.69. I do not have prior lab work to establish a baseline. [id number]. No SOB Objective Data Temperature: 99.5 F Pulse Rate: 77 Respiratory Rate: 20 Blood Pressure: 124/58 O2 Sat by Pulse Oximetry: 96 Objective Data: still with crepitance right chest wall and right neck. CXR with atelectasis and no obvious pneumothorax . Assessment Assessment: 1) right pneumothorax, 2) failure to thrive - improved, 3) Increased CK, 4) renal failure Plan Plan: Continue IVFs , Monitor respiratory status , continue incentive spiromet ry, repeat CXR in AM.
--- NOTE | 2023-01-23 17:39 | RAD ---
HISTORYRIGHT PNEUMOTHORAX Relevant Clinical InformationSTUDYCHEST, 1 [id number] is subcutaneous emphysema in the right supraclavicular region slightly decrease since prior study. Subcutaneous emphysema in the right lateral chest is unchangedThere is mild cardiomegaly. A previously seen right apical pneumothorax on CT is not well seen.There is persistent ground-glass radiopacities in the lower lobes with interval worsening in the right upper lobe. The trachea is midline. No pleural effusions.IMPRESSION:Mild decreased subcutaneous emphysema in the right supraclavicular region and unchanged in the right lateral regionA pneumothorax is no clearly seen.Worsening glass radiopacity in the right upper lobe and unchanged in the bases.Electronically signed by: Sherlyn Owens (Jan 23, 2023 17:37:39)
[2023-01-23] MEDS: NORCO 10/325 TAB PO PRN (17:42)
[2023-01-23] MEDS ORDERED: TUSSIONEX PENNKINETIC SUSP PO PRN (17:44)
[2023-01-23] MEDS: ULTRAM PO PRN (19:50)
[2023-01-23] MEDS: ZOCOR TAB 20 MG PO SCH (20:16)
[2023-01-23] MEDS: ROBITUSSIN DM PO SCH (20:17)
[2023-01-24] MEDS: MORPHINE SULFATE INJ 2 MG INJ IVP PRN ×3 (01:46→12:49)
[2023-01-24 05:45] LABS: BASOPHILS % (AUTO) 0.3 % (0.2-1.0); EOSINOPHILS # (AUTO) 0.2 x10^3/uL (0.0-0.2); EOSINOPHILS % (AUTO) 1.1 % (0.9-2.9); HEMATOCRIT 26.2 % (42.0-54.0); LYMPHOCYTES # (AUTO) 0.8 X10^3/uL (1.3-2.9); LYMPHOCYTES % (AUTO) 5.2 % (21.0-51.0); MEAN CORPUSCULAR HEMOGLOBIN 30.5 pg (27.0-34.0); MEAN CORPUSCULAR HGB CONC 34.5 g/dL (33.0-35.0); MEAN CORPUSCULAR VOLUME 88.2 fL (80.0-100.0); MEAN PLATELET VOLUME 8.3 fL (7.4-11.0); MONOCYTES # (AUTO) 1.7 x10^3/uL (0.3-0.8); MONOCYTES % (AUTO) 11.4 % (0.0-13.0); NEUTROPHILS # (AUTO) 12.5 x10^3/uL (2.2-4.8); PLATELET COUNT 207 X10^3/uL (150.0-450.0); RED BLOOD COUNT 2.97 X10^6/uL (4.7-6.0); RED CELL DISTRIBUTION WIDTH 14.5 % (11.6-16.5); WHITE BLOOD COUNT 15.3 X10^3/uL (3.6-10.0)
[2023-01-24] MEDS: NORCO 10/325 TAB PO PRN ×2 (05:54→20:08)
[2023-01-24 06:02] LABS: CALCIUM 8.1 mg/dL (8.5-10.1); CREATININE 5.06 mg/dL (0.70-1.30)
[2023-01-24] MEDS: NS 1,000 ML IV 1,000 ML IV SCH ×2 (06:05→20:07)
[2023-01-24] MEDS: BENICAR PO SCH (09:30)
[2023-01-24] MEDS: FLOMAX PO SCH (09:30)
[2023-01-24] MEDS: PriLOSEC PO SCH (09:30)
[2023-01-24] MEDS: THORAZINE TAB 25 MG PO SCH ×2 (09:30→20:09)
[2023-01-24] MEDS: NEURONTIN CAP 300 MG PO SCH (09:30)
[2023-01-24] MEDS: MILK OF MAGNESIA PO SCH ×2 (09:31→20:07)
[2023-01-24] MEDS: INVanz INJ 1 GRAM VIAL 0.5 G in NS 50 ML IV 50 ML IV SCH (09:31)
[2023-01-24] MEDS: ROBITUSSIN DM PO SCH ×4 (09:31→20:07)
[2023-01-24] MEDS: COLACE CAP 100 MG PO SCH ×2 (09:31→20:07)
[2023-01-24] MEDS ORDERED: NS 1,000 ML IV 1,000 ML with SODIUM BICARBONATE 8.4% INJ ADULT 100 ML IV ONE ×2 (10:00)
[2023-01-24] MEDS: ULTRAM PO PRN (10:16)
[2023-01-24] MEDS: ZANAFLEX PO PRN ×2 (10:16→20:09)
[2023-01-24] MEDS: DUONEB 0.5 MG/3 MG (3 mL) NEB SCH ×4 (12:39→20:45)
[2023-01-24] MEDS: PULMICORT NEB TX 0.5 MG NEB SCH ×2 (12:39→20:45)
[2023-01-24] MEDS ORDERED: ZOFRAN INJ 4 MG VIAL IVP PRN (13:54)
[2023-01-24] MEDS: ZOCOR TAB 20 MG PO SCH (20:07)
--- NOTE | 2023-01-24 20:12 | NOTE.SOAP ---
Soap Note Note for Day of Date of Exam: 01/24/23 Subjective Data Subjective Data: Admitted with change of mental status and right pneumothorax after right lateral approach for lumbar spine surgery. No SOB . Continues to improve , but still with hiccups. Objective Data Temperature: 99.3 F Pulse Rate: 77 Respiratory Rate: 18 Blood Pressure: 160/83 O2 Sat by Pulse Oximetry: 93 Objective Data: Crepitance still of right neck an d chest . Creatinine decreased to 5.06. Discussed complication of the right pneumothorax with his spine surgeon today. Known potential complication. Not requiring chest tube . He is to send me patient's baseline lab values, especially the creatinine. Assessment Assessment: right pneumothorax, stable Plan Plan: Continue incentive spirometry . Check CXR in AM.
--- NOTE | 2023-01-24 22:23 | PCM.PROG ---
Progress Note - Progress Note for Day of Date of Exam: 01/24/23 - Subjective Subjective: IS A 77 YEAR OLD PATIENT OF OURS. HE HAS A PMH OF HTN, GERD, RENAL DISEASE, CHRONIC LOW BACK PAIN, CATARACT SURGERY, AND BACK SURGERY X 5. HE IS CURRENTLY INPATIENT STATUS FOR TREATMENT OF ACUTE ON CHRONIC RENAL FAILURE, BILATERAL PNEUMONIA, RHABDOMYOLYSIS, PNEUMOTHORAX, SUBCUTANEOUS EMPHYSEMA, HYPOXIA, MAXILLARY SINUSITIS, AND ANEMIA. TODAY, HE IS ALERT AND ORIENTED, LYING IN BED ON MORNING ROUNDS. HE CONTINUES TO COMPLAIN OF GENERALIZED WEAKNESS, SHORTNESS OF BREATH AT TIMES, INTERMITTENT BACK PAIN, AND OCCASIONAL NAUSEA. HE REPORTS HAVING BACK SURGERY ON 01/18/23 BY IN [place], [place]. ON EXAMINATION, HEART IS REGULAR IN RATE AND RHYTHM. BILATERAL LUNGS ARE NOTED WITH DIMINISHED LUNG SOUNDS THROUGHOUT. ABDOMEN IS ROUND, SOFT, AND NON-TENDER WITH NORMAL BOWEL SOUNDS NOTED IN ALL QUADRANTS. TENDERNESS NOTED TO LUMBAR SPINE. GOOD RANGE OF MOTION NOTED TO BILATERAL LOWER EXTREMITIES WITH NO EDEMA NOTED. HIS VITALS THIS MORNING ARE: 98.3-85-20-94%-166/80. LABS WERE OBTAINED. WBC 15.3, RBC 2.97, HGB 9.0, HCT 26.2, PLT COUNT 207, SODIUM 134, POTASSIUM 5.0, CHLORIDE 101, CARBON DIOXIDE 23.0, BUN 102, CREATININE 5.06, GLUCOSE 122, CALCIUM 8.1, CREATINE KINASE 2239, TROPONIN 52.3. RESPIRATORY VIRAL PANEL IS PENDING. BLOOD, SPUTUM, AND URINE CULTURES ARE PENDING. A CHEST XRAY WAS REPEATED YESTERDAY AND REVEALED: Mild decreased subcutaneous emphysema in the right supraclavicular region and unchanged in the right lateral region. A pneumothorax is no clearly seen. Worsening glass radiopacity in the right upper lobe and unchanged in the bases. HE IS CURRENTLY RECEIVING NORMAL SALINE AT 75 ML/HR, INVANZ 0.5G IV DAILY, COLACE 100MG BID, NORCO 10/325MG Q8H PRN, MORPHINE SULFATE 1-2MG IV Q4H PRN, MILK OF MAGNESIA 30 ML BID. HIS HOME MEDICATIONS OF PERCOCET, TRAMADOL, TIZANIDINE, TAMSULOSIN, OMEPRAZOLE, OLMESARTAN, AND GABAPENTIN WERE RESUMED. WE WILL INCREASE THE FREQUENCY OF HIS NORCO TO Q8H. WE WILL ADD DUONEBS QID, PULMICORT NEBS BID, ZOFRAN 4MG IV Q6H PRN. OTHERWISE, WE WILL FOLLOW UP WITH AM LABS AND CHEST XRAY AND CONTINUE TO MONITOR. TIME SPENT ON CLINICAL ASSESSMENT, REVIEWING LABS AND IMAGING, DECISION MAKING, AND DOCUMENTATION GREATER THAN 45 MINUTES. - Past Medical Family Social History Past Med/Fam/Surg Hx: No changes since H&P Allergies: Allergies No Known Allergies Allergy (Verified 01/22/23 08:37) - Review of Systems ROS: No change since H&P - Vital Signs and I&O's Vital Signs: Vital Signs Temperature 99.3 F Temperature 99.3 F Temperature 98.2 F Pulse Rate [Right Radial] 77 Pulse Rate [Right Radial] 89 Pulse Rate 77 Respiratory Rate 20 Respiratory Rate 18 Respiratory Rate 18 Respiratory Rate 18 Respiratory Rate 20 Blood Pressure [Right Arm] 160/83 Blood Pressure [Right Arm] 167/75 Blood Pressure [Right Arm] 188/87 Blood Pressure 160/83 O2 Sat by Pulse Oximetry 93 O2 Sat by Pulse Oximetry 93 O2 Sat by Pulse Oximetry 96 Intake and Output: Intake & Output 01/22/23 01/23/23 01/24/23 01/25/23 11:59 11:59 11:59 11:59 Intake Total 1591 / 1591 4160 / 4160 2468 / 2468 Output Total 1000 / 1000 1550 / 1550 775 / 775 Balance 591 / 591 2610 / 2610 1693 / 1693 - Physical Exam Oriented: Normal, Time, Person, Place Eyes: Normal Ear: Normal Nose: Normal Throat: Normal Respiratory: Diminished Cardiovascular: Normal : Normal Auscultation: Bowel Sounds: Normal Palpation: Normal Tenderness: Normal Skin: Normal, Papular Musculoskeletal: Back:Lumbar, Tender (D) Psychiatric: Normal Mood Description: Calm Affect: Normal Speech Pattern: Clear, Appropriate - Laboratory and Diagnostics Result Diagrams: 01/24/23 05:00 01/24/23 05:00 Labs: 01/22/23 08:55 Blood Blood Culture - Preliminary 01/22/23 08:27 Blood Blood Culture - Preliminary 01/23/23 17:17 Sputum - Expectorated Sputum Sputum Culture - Preliminary 01/23/23 17:17 Sputum - Expectorated Sputum - Final 01/22/23 12:50 Urine,Catheterized Urine Culture - Final Laboratory WBC 15.3 X10^3/uL (3.6-10.0) H 01/24/23 05:00 RBC 2.97 X10^6/uL (4.7-6.0) L 01/24/23 05:00 Hgb 9.0 g/dL (13.5-18.0) L 01/24/23 05:00 Hct 26.2 % (42.0-54.0) L 01/24/23 05:00 MCV 88.2 fL (80.0-100.0) 01/24/23 05:00 MCH 30.5 pg (27.0-34.0) 01/24/23 05:00 MCHC 34.5 g/dL (33.0-35.0) 01/24/23 05:00 RDW 14.5 % (11.6-16.5) 01/24/23 05:00 Plt Count 207 X10^3/uL (150.0-450.0) 01/24/23 05:00 MPV 8.3 fL (7.4-11.0) 01/24/23 05:00 Neut % (Auto) 82.0 % (42.0-75.0) H 01/24/23 05:00 Lymph % (Auto) 5.2 % (21.0-51.0) L 01/24/23 05:00 [place] % (Auto) 11.4 % (0.0-13.0) 01/24/23 05:00 Eos % (Auto) 1.1 % (0.9-2.9) 01/24/23 05:00 Baso % (Auto) 0.3 % (0.2-1.0) 01/24/23 05:00 Neut # (Auto) 12.5 x10^3/uL (2.2-4.8) H 01/24/23 05:00 Lymph # (Auto) 0.8 X10^3/uL (1.3-2.9) L 01/24/23 05:00 [place] # (Auto) 1.7 x10^3/uL (0.3-0.8) H 01/24/23 05:00 Eos # (Auto) 0.2 x10^3/uL (0.0-0.2) 01/24/23 05:00 Baso # (Auto) 0.0 X10^3/uL (0.0-0.1) 01/24/23 05:00 Absolute Nucleated RBC 0.0 /100WBC 01/24/23 05:00 Sample Site [facility]bra 01/23/23 08:52 ABG pH 7.370 (7.35-7.45) 01/23/23 08:52 ABG pCO2 38.0 mmHg (35.0-45.0) 01/23/23 08:52 ABG pO2 73.0 mmHg (80.0-100.0) L 01/23/23 08:52 ABG HCO3 22.0 mmol/L (22-26) 01/23/23 08:52 ABG O2 Saturation 94.0 % (90-100) 01/23/23 08:52 ABG Base Excess -2.9 mmol/L (-2.0-2.0) L 01/23/23 08:52 Daryl Test N/a 01/23/23 08:52 A-a Gradient 79.0 mmHg 01/23/23 08:52 FiO2 28.0 01/23/23 08:52 Blood Gas Comments Pt liang well eb 01/23/23 08:52 Sodium 134 mmol/L (136-145) L 01/24/23 05:00 Corrected Sodium 135 mmol/L (136-145) L 01/24/23 05:00 Potassium 5.0 mmol/L (3.5-5.1) 01/24/23 05:00 Chloride 101 mmol/L (98-107) 01/24/23 05:00 Carbon Dioxide 23.0 mmol/L (21-32) 01/24/23 05:00 BUN 102 mg/dL (7-18) H 01/24/23 05:00 Creatinine 5.06 mg/dL (0.70-1.30) H 01/24/23 05:00 Est GFR (MDRD) Af Amer 14 (>60) L 01/24/23 05:00 Est GFR (MDRD) Non-Af 12 (>60) L 01/24/23 05:00 Glucose 122 mg/dL (65-99) H 01/24/23 05:00 Lactic Acid 1.4 mmol/L (0.4-2.0) 01/22/23 08:27 Calcium 8.1 mg/dL (8.5-10.1) L 01/24/23 05:00 Corrected Calcium Cancelled 01/23/23 04:20 Total Bilirubin Cancelled 01/23/23 04:20 AST Cancelled 01/23/23 04:20 ALT Cancelled 01/23/23 04:20 Alkaline Phosphatase Cancelled 01/23/23 04:20 Creatine Kinase 2239 Units/L (39-308) H 01/24/23 05:00 Troponin I High Sens 52.3 ng/L (4.0-60.0) 01/24/23 05:00 B-Natriuretic Peptide 32.7 pg/mL (0-79) 01/22/23 15:24 Total Protein Cancelled 01/23/23 04:20 Albumin Cancelled 01/23/23 04:20 Globulin Cancelled 01/23/23 04:20 Albumin/Globulin Ratio Cancelled 01/23/23 04:20 Specimen Type Catherized urine 01/22/23 12:50 Urine Color Dark yellow (YELLOW) 01/22/23 12:50 Urine Appearance Cloudy (CLEAR) 01/22/23 12:50 Urine pH 5.0 (5.0 - 8.0) 01/22/23 12:50 Ur Specific [place] 1.020 (1.000-1.030) 01/22/23 12:50 Urine Protein 2+ (NEGATIVE) 01/22/23 12:50 Urine Glucose (UA) Negative (NEGATIVE) 01/22/23 12:50 Urine Ketones Negative (NEGATIVE) 01/22/23 12:50 Urine Blood 5+ (NEGATIVE) 01/22/23 12:50 Urine Nitrite Negative (NEGATIVE) 01/22/23 12:50 Urine Bilirubin Negative (NEGATIVE) 01/22/23 12:50 Urine Urobilinogen Normal (NORMAL) 01/22/23 12:50 Ur Leukocyte Esterase 1+ (NEGATIVE) 01/22/23 12:50 Urine RBC Tntc /HPF (0-3) A 01/22/23 12:50 Urine WBC 5-10 /HPF (0-5) A 01/22/23 12:50 Ur Squamous Epith Cells Few /HPF (NEGATIVE) 01/22/23 12:50 Urine Bacteria Trace /HPF (NEGATIVE) 01/22/23 12:50 Urine Mucus Few /HPF (NEGATIVE) 01/22/23 12:50 Ur Culture Indicated? Yes/culture set up 01/22/23 12:50 - Plan (1) Acute renal failure Status: Acute Qualifiers: Acute renal failure type: unspecified Qualified Code(s): N17.9 - Acute kidney failure, unspecified Plan: NORMAL SALINE AT 75 ML/HR, INVANZ 0.5G IV DAILY, DUONEBS QID, PULMICORT NEBS BID, COLACE 100MG BID, NORCO 10/325MG Q6H PRN, MILK OF MAGNESIA 30 ML BID. WE WILL RESUME HIS HOME MEDICATIONS OF TRAMADOL, TIZANIDINE, TAMSULOSIN, OMEPRAZOLE, OLMESARTAN, AND GABAPENTIN. (2) Hypoxia Status: Acute (3) Maxillary sinusitis Status: Acute Qualifiers: Chronicity: acute Recurrence: not specified as recurrent Qualified Code(s): J01.00 - Acute maxillary sinusitis, unspecified (4) Rhabdomyolysis Status: Acute Qualifiers: Rhabdomyolysis type: non-traumatic Qualified Code(s): M62.82 - Rhabdomyolysis (5) Pneumothorax, right Status: Acute (6) Anemia Status: Acute Qualifiers: Anemia type: iron deficiency Iron deficiency anemia type: chronic blood loss Qualified Code(s): D50.0 - Iron deficiency anemia secondary to blood loss (chronic) (7) Failure to thrive in adult Status: Acute
[2023-01-25] MEDS: NS 1,000 ML IV 1,000 ML IV SCH ×3 (03:16→10:14)
[2023-01-25 05:59] LABS: BASOPHILS % (AUTO) 0.2 % (0.2-1.0); EOSINOPHILS # (AUTO) 0.5 x10^3/uL (0.0-0.2); EOSINOPHILS % (AUTO) 2.8 % (0.9-2.9); HEMATOCRIT 26.5 % (42.0-54.0); LYMPHOCYTES # (AUTO) 0.6 X10^3/uL (1.3-2.9); LYMPHOCYTES % (AUTO) 3.6 % (21.0-51.0); MEAN CORPUSCULAR HEMOGLOBIN 30.3 pg (27.0-34.0); MEAN CORPUSCULAR HGB CONC 34.1 g/dL (33.0-35.0); MEAN CORPUSCULAR VOLUME 88.7 fL (80.0-100.0); MEAN PLATELET VOLUME 8.4 fL (7.4-11.0); MONOCYTES % (AUTO) 11.5 % (0.0-13.0); NEUTROPHILS % (AUTO) 81.9 % (42.0-75.0); PLATELET COUNT 236 X10^3/uL (150.0-450.0); RED BLOOD COUNT 2.99 X10^6/uL (4.7-6.0); RED CELL DISTRIBUTION WIDTH 14.2 % (11.6-16.5); WHITE BLOOD COUNT 17.1 X10^3/uL (3.6-10.0)
[2023-01-25 06:17] LABS: BAND NEUTROPHILS % 7 % (0-10); PLATELET MORPHOLOGY COMMENT NORMAL (NORMAL)
[2023-01-25 06:24] LABS: ALBUMIN 2.3 g/dL (3.4-5.0); CARBON DIOXIDE 24.5 mmol/L (21-32); COR CA(FOR HYPOALB) 9.4 mg/dL (8.5-10.1); CREATININE 4.3 mg/dL (0.70-1.30); POTASSIUM 5.2 mmol/L (3.5-5.1); TOTAL PROTEIN 6.2 g/dL (6.4-8.2)
--- NOTE | 2023-01-25 07:16 | RAD ---
HISTORYFollow-up right pneumothoraxSTUDYChest AP [id number] t remains enlarged. No congestive heart failure is noted. No definite right pneumothorax identified. Subcutaneous emphysema in the right neck and along the right lateral chest wall continues to decrease. There is perihilar infiltrate on the right unchanged from the prior examination. Left lung is clear. Bony thorax is unremarkable.IMPRESSIONNo definite residual or recurrent right pneumothoraxRight perihilar infiltrate unchangedCardiomegaly without congestive heart failureDecreasing subcutaneous emphysemaElectronically signed by: ANKIT ARCE (Jan 25, 2023 07:14:22)
[2023-01-25] MEDS: PriLOSEC PO SCH ×2 (08:34→08:35)
[2023-01-25] MEDS: THORAZINE TAB 25 MG PO SCH ×2 (08:35→20:48)
[2023-01-25] MEDS: FLOMAX PO SCH (08:35)
[2023-01-25] MEDS: NEURONTIN CAP 300 MG PO SCH (08:36)
[2023-01-25] MEDS: ROBITUSSIN DM PO SCH ×4 (08:36→20:48)
[2023-01-25] MEDS: BENICAR PO SCH (08:36)
[2023-01-25] MEDS: INVanz INJ 1 GRAM VIAL 0.5 G in NS 50 ML IV 50 ML IV SCH (08:37)
[2023-01-25] MEDS: MILK OF MAGNESIA PO SCH ×2 (08:37→20:47)
[2023-01-25] MEDS: ZANAFLEX PO PRN (08:42)
[2023-01-25] MEDS: ULTRAM PO PRN (08:47)
[2023-01-25] MEDS: PULMICORT NEB TX 0.5 MG NEB SCH ×2 (09:50→20:14)
[2023-01-25] MEDS: DUONEB 0.5 MG/3 MG (3 mL) NEB SCH ×4 (09:50→20:14)
[2023-01-25] MEDS ORDERED: PHARMACY CONSULT - TPN XX SCH (10:00)
[2023-01-25] MEDS: DIFLUCAN 100 MG IV (MIX by PHARMACY)* 100 MG/50 ML BAG IV SCH (10:06)
[2023-01-25] MEDS: COLACE CAP 100 MG PO SCH ×2 (10:06→20:48)
[2023-01-25] MEDS: NORCO 10/325 TAB PO PRN ×2 (12:20→20:30)
[2023-01-25] MEDS: CLINIMIX 4.25%-5% 1,000 ML with MVI INJ (ADULT) 10 ML IV SCH ×2 (12:21)
[2023-01-25] MEDS ORDERED: DRUG FILTER EXTENSION SET ONE (12:22)
--- NOTE | 2023-01-25 12:46 | EKG ---
Test Reason : CHEST PAIN Blood Pressure : */* mmHG Vent. Rate : 81 BPM Atrial Rate : 81 BPM P-R Int : 164 ms QRS Dur : 98 ms QT Int : 334 ms P-R-T Axes : 52 -1 57 degrees QTc Int : 387 ms Normal sinus rhythm Normal ECG When compared with ECG of 22-JAN-2023 08:34, Nonspecific T wave abnormality now evident in Anterior leads Confirmed by Edson Tompkins ([id number]) on 01/26/2023 8:54:10 PM Referred By: Confirmed By: Edson Tompkins
[2023-01-25] MEDS: MORPHINE SULFATE INJ 2 MG INJ IVP PRN (12:49)
--- NOTE | 2023-01-25 19:36 | NOTE.SOAP ---
Soap Note Note for Day of Date of Exam: 01/25/23 Subjective Data Subjective Data: Patient continues to improve. Hiccups shellie , A &O x 3 . Making urine .No SOB Objective Data Temperature: 98.5 F Pulse Rate: 78 Blood Pressure: 132/67 O2 Sat by Pulse Oximetry: 95 Objective Data: Abdomen soft. Less crepitence of neck. CXR- No pneumothorax. Assessment Assessment: Right pneumothorax following right lateral exposure of lumbar spi ne. No chest tube necessary. Patient to receive nutrition. Plan Plan: Will sign off. F/U with me in one week after discharge. Call me for any increasing SOB.
[2023-01-25] MEDS: ZOCOR TAB 20 MG PO SCH (20:48)
--- NOTE | 2023-01-25 23:19 | PCM.PROG ---
Progress Note - Progress Note for Day of Date of Exam: 01/25/23 - Subjective Subjective: IS A 77 YEAR OLD PATIENT OF OURS. HE HAS A PMH OF HTN, GERD, RENAL DISEASE, CHRONIC LOW BACK PAIN, CATARACT SURGERY, AND BACK SURGERY X 5. HE IS CURRENTLY INPATIENT STATUS FOR TREATMENT OF ACUTE ON CHRONIC RENAL FAILURE, BILATERAL PNEUMONIA, RHABDOMYOLYSIS, PNEUMOTHORAX, SUBCUTANEOUS EMPHYSEMA, HYPOXIA, MAXILLARY SINUSITIS, AND ANEMIA. TODAY, HE IS ALERT AND ORIENTED, LYING IN BED ON MORNING ROUNDS. HE CONTINUES TO COMPLAIN OF GENERALIZED WEAKNESS, SHORTNESS OF BREATH AT TIMES, INTERMITTENT BACK PAIN, AND OCCASIONAL NAUSEA. HE REPORTS HAVING BACK SURGERY ON 01/18/23 BY IN [place], [place]. ON EXAMINATION, HEART IS REGULAR IN RATE AND RHYTHM. BILATERAL LUNGS ARE NOTED WITH DIMINISHED LUNG SOUNDS THROUGHOUT. ABDOMEN IS ROUND, SOFT, AND NON-TENDER WITH NORMAL BOWEL SOUNDS NOTED IN ALL QUADRANTS. TENDERNESS NOTED TO LUMBAR SPINE. GOOD RANGE OF MOTION NOTED TO BILATERAL LOWER EXTREMITIES WITH NO EDEMA NOTED. HIS VITALS THIS MORNING ARE: 98.2-81-18-95%-160/79. LABS WERE OBTAINED. WBC 17.1, RBC 2.99, HGB 9.0, HCT 26.5, PLT COUNT 236, SODIUM 136, POTASSIUM 5.2, CHLORIDE 103, BUN 89, CREATININE 4.30, GLUCOSE 150, CALCIUM 8.0, TOTAL BILI 0.50, AST 126, ALT 73, ALK PHOS 148, CREATINE KINASE 1507, TROPONIN 56.7, TOTAL PROTEIN 6.2, ALBUMIN 2.3. RESPIRATORY VIRAL PANEL IS PENDING. BLOOD, SPUTUM, AND URINE CULTURES ARE PENDING. A CHEST XRAY WAS REPEATED YESTERDAY AND REVEALED: No definite residual or recurrent right pneumothorax. Right perihilar infiltrate unchanged. Cardiomegaly without congestive heart failure. Decreasing subcutaneous emphysema. HE IS CURRENTLY RECEIVING NORMAL SALINE AT 85 ML/HR, INVANZ 0.5G IV DAILY, DIFLUCAN 100MG IV DAILY, DUONEBS QID, PULMICORT NEBS BID, ZOFRAN 4MG IV Q6H PRN, COLACE 100MG BID, NORCO 10/325MG Q6H PRN, MORPHINE SULFATE 1-2MG IV Q4H PRN, MILK OF MAGNESIA 30 ML BID. HIS HOME MEDICATIONS OF PERCOCET, TRAMADOL, TIZANIDINE, TAMSULOSIN, OMEPRAZOLE, OLMESARTAN, AND GABAPENTIN WERE RESUMED. WE WILL ADD TPN AT 40 ML/HR. OTHERWISE, WE WILL FOLLOW UP WITH AM LABS AND CHEST XRAY AND CONTINUE TO MONITOR. TIME SPENT ON CLINICAL A SSESSMENT, REVIEWING LABS AND IMAGING, DECISION MAKING, AND DOCUMENTATION GREATER THAN 45 MINUTES. - Past Medical Family Social History Past Med/Fam/Surg Hx: No changes since H&P Allergies: Allergies No Known Allergies Allergy (Verified 01/22/23 08:37) - Review of Systems ROS: No change since H&P - Vital Signs and I&O's Vital Signs: Vital Signs Temperature 98.1 F Temperature 98.5 F Temperature 99.3 F Pulse Rate [Right Radial] 84 Pulse Rate [Right Radial] 89 Pulse Rate 94 Pulse Rate 78 Pulse Rate 75 Respiratory Rate 23 Respiratory Rate 23 Respiratory Rate 22 Respiratory Rate 20 Blood Pressure [Right Arm] 172/81 Blood Pressure [Right Arm] 155/72 Blood Pressure 132/67 O2 Sat by Pulse Oximetry 98 O2 Sat by Pulse Oximetry 97 O2 Sat by Pulse Oximetry 95 O2 Sat by Pulse Oximetry 93 O2 Sat by Pulse Oximetry 95 Intake and Output: Intake & Output 01/23/23 01/24/23 01/25/23 01/26/23 11:59 11:59 11:59 11:59 Intake Total 1591 / 1591 4160 / 4160 4431 / 4431 1380 / 1380 Output Total 1000 / 1000 1550 / 1550 1775 / 1775 900 / 900 Balance 591 / 591 2610 / 2610 2656 / 2656 480 / 480 - Physical Exam Oriented: Normal, Time, Person, Place Eyes: Normal Ear: Normal Nose: Normal Throat: Normal Respiratory: Diminished Cardiovascular: Normal : Normal Auscultation: Bowel Sounds: Normal Palpation: Normal Tenderness: Normal Skin: Normal, Papular Musculoskeletal: Back:Lumbar, Tender (D) Psychiatric: Normal Mood Description: Calm Affect: Normal Speech Pattern: Clear, Appropriate - Laboratory and Diagnostics Result Diagrams: 01/25/23 05:14 01/25/23 05:14 Labs: 01/23/23 17:17 Sputum - Expectorated Sputum Sputum Culture - Final 01/23/23 17:17 Sputum - Expectorated Sputum - Final 01/22/23 08:55 Blood Blood Culture - Preliminary 01/22/23 08:27 Blood Blood Culture - Preliminary 01/22/23 12:50 Urine,Catheterized Urine Culture - Final Laboratory WBC 17.1 X10^3/uL (3.6-10.0) H 01/25/23 05:14 RBC 2.99 X10^6/uL (4.7-6.0) L 01/25/23 05:14 Hgb 9.0 g/dL (13.5-18.0) L 01/25/23 05:14 Hct 26.5 % (42.0-54.0) L 01/25/23 05:14 MCV 88.7 fL (80.0-100.0) 01/25/23 05:14 MCH 30.3 pg (27.0-34.0) 01/25/23 05:14 MCHC 34.1 g/dL (33.0-35.0) 01/25/23 05:14 RDW 14.2 % (11.6-16.5) 01/25/23 05:14 Plt Count 236 X10^3/uL (150.0-450.0) 01/25/23 05:14 Plt Count Comment Adequate (ADEQUATE) 01/25/23 05:14 MPV 8.4 fL (7.4-11.0) 01/25/23 05:14 Neut % (Auto) 81.9 % (42.0-75.0) H 01/25/23 05:14 Lymph % (Auto) 3.6 % (21.0-51.0) L 01/25/23 05:14 [place] % (Auto) 11.5 % (0.0-13.0) 01/25/23 05:14 Eos % (Auto) 2.8 % (0.9-2.9) 01/25/23 05:14 Baso % (Auto) 0.2 % (0.2-1.0) 01/25/23 05:14 Neut # (Auto) 14.0 x10^3/uL (2.2-4.8) H 01/25/23 05:14 Lymph # (Auto) 0.6 X10^3/uL (1.3-2.9) L 01/25/23 05:14 [place] # (Auto) 2.0 x10^3/uL (0.3-0.8) H 01/25/23 05:14 Eos # (Auto) 0.5 x10^3/uL (0.0-0.2) H 01/25/23 05:14 Baso # (Auto) 0.0 X10^3/uL (0.0-0.1) 01/25/23 05:14 Absolute Nucleated RBC 0.0 /100WBC 01/25/23 05:14 Total Counted 100 01/25/23 05:14 Neutrophils % (Manual) 82 % (39-76) H 01/25/23 05:14 Band Neutrophils % 7 % (0-10) 01/25/23 05:14 Lymphocytes % (Manual) 4 % (13-43) L 01/25/23 05:14 Monocytes % (Manual) 5 % (4-9) 01/25/23 05:14 Eosinophils % (Manual) 2 % (0-6) 01/25/23 05:14 Plt Morphology Comment Normal (NORMAL) 01/25/23 05:14 RBC Morphology Normal (NORMAL) 01/25/23 05:14 Sample Site [facility] 01/23/23 08:52 ABG pH 7.370 (7.35-7.45) 01/23/23 08:52 ABG pCO2 38.0 mmHg (35.0-45.0) 01/23/23 08:52 ABG pO2 73.0 mmHg (80.0-100.0) L 01/23/23 08:52 ABG HCO3 22.0 mmol/L (22-26) 01/23/23 08:52 ABG O2 Saturation 94.0 % (90-100) 01/23/23 08:52 ABG Base Excess -2.9 mmol/L (-2.0-2.0) L 01/23/23 08:52 Daryl Test N/a 01/23/23 08:52 A-a Gradient 79.0 mmHg 01/23/23 08:52 FiO2 28.0 01/23/23 08:52 Blood Gas Comments Pt liang well eb 01/23/23 08:52 Sodium 136 mmol/L (136-145) 01/25/23 05:14 Corrected Sodium 137 mmol/L (136-145) 01/25/23 05:14 Potassium 5.2 mmol/L (3.5-5.1) H 01/25/23 05:14 Chloride 103 mmol/L (98-107) 01/25/23 05:14 Carbon Dioxide 24.5 mmol/L (21-32) 01/25/23 05:14 BUN 89 mg/dL (7-18) H 01/25/23 05:14 Creatinine 4.30 mg/dL (0.70-1.30) H 01/25/23 05:14 Est GFR (MDRD) Af Amer 17 (>60) L 01/25/23 05:14 Est GFR (MDRD) Non-Af 14 (>60) L 01/25/23 05:14 Glucose 150 mg/dL (65-99) H 01/25/23 05:14 Lactic Acid 1.4 mmol/L (0.4-2.0) 01/22/23 08:27 Calcium 8.0 mg/dL (8.5-10.1) L 01/25/23 05:14 Corrected Calcium 9.4 mg/dL (8.5-10.1) 01/25/23 05:14 Total Bilirubin 0.50 mg/dL (0.2-1.0) 01/25/23 05:14 AST 126 Units/L (15-37) H 01/25/23 05:14 ALT 73 Units/L (12-78) 01/25/23 05:14 Alkaline Phosphatase 148 Units/L (46-116) H 01/25/23 05:14 Creatine Kinase 1507 Units/L (39-308) H 01/25/23 05:14 Troponin I High Sens 50.0 ng/L (4.0-60.0) 01/25/23 17:17 B-Natriuretic Peptide 32.7 pg/mL (0-79) 01/22/23 15:24 Total Protein 6.2 g/dL (6.4-8.2) L 01/25/23 05:14 Albumin 2.3 g/dL (3.4-5.0) L 01/25/23 05:14 Globulin 3.9 g/dL (2.5-4.5) 01/25/23 05:14 Albumin/Globulin Ratio 0.6 Ratio (1.1-2.1) L 01/25/23 05:14 Specimen Type Catherized urine 01/22/23 12:50 Urine Color Dark yellow (YELLOW) 01/22/23 12:50 Urine Appearance Cloudy (CLEAR) 01/22/23 12:50 Urine pH 5.0 (5.0 - 8.0) 01/22/23 12:50 Ur Specific [place] 1.020 (1.000-1.030) 01/22/23 12:50 Urine Protein 2+ (NEGATIVE) 01/22/23 12:50 Urine Glucose (UA) Negative (NEGATIVE) 01/22/23 12:50 Urine Ketones Negative (NEGATIVE) 01/22/23 12:50 Urine Blood 5+ (NEGATIVE) 01/22/23 12:50 Urine Nitrite Negative (NEGATIVE) 01/22/23 12:50 Urine Bilirubin Negative (NEGATIVE) 01/22/23 12:50 Urine Urobilinogen Normal (NORMAL) 01/22/23 12:50 Ur Leukocyte Esterase 1+ (NEGATIVE) 01/22/23 12:50 Urine RBC Tntc /HPF (0-3) A 01/22/23 12:50 Urine WBC 5-10 /HPF (0-5) A 01/22/23 12:50 Ur Squamous Epith Cells Few /HPF (NEGATIVE) 01/22/23 12:50 Urine Bacteria Trace /HPF (NEGATIVE) 01/22/23 12:50 Urine Mucus Few /HPF (NEGATIVE) 01/22/23 12:50 Ur Culture Indicated? Yes/culture set up 01/22/23 12:50 Resp Viral Panel (PCR) See scanned report 01/23/23 09:57 - Plan (1) Acute renal failure Status: Acute Qualifiers: Acute renal failure type: unspecified Qualified Code(s): N17.9 - Acute kidney failure, unspecified Plan: NORMAL SALINE AT 75 ML/HR, TPN AT 40 ML/HR, DIFLUCAN 100MG IV DAILY, INVANZ 0.5G IV DAILY, DUONEBS QID, PULMICORT NEBS BID, COLACE 100MG BID, NORCO 10/325MG Q6H PRN, MILK OF MAGNESIA 30 ML BID. WE WILL RESUME HIS HOME MEDICATIONS OF TRAMADOL, TIZANIDINE, TAMSULOSIN, OMEPRAZOLE, OLMESARTAN, AND GABAPENTIN. (2) Hypoxia Status: Acute (3) Maxillary sinusitis Status: Acute Qualifiers: Chronicity: acute Recurrence: not specified as recurrent Qualified Code(s): J01.00 - Acute maxillary sinusitis, unspecified (4) Rhabdomyolysis Status: Acute Qualifiers: Rhabdomyolysis type: non-traumatic Qualified Code(s): M62.82 - Rhabdomyolysis (5) Pneumothorax, right Status: Acute (6) Anemia Status: Acute Qualifiers: Anemia type: iron deficiency Iron deficiency anemia type: chronic blood loss Qualified Code(s): D50.0 - Iron deficiency anemia secondary to blood loss (chronic) (7) Failure to thrive in adult Status: Acute
[2023-01-26] MEDS: NS 1,000 ML IV 1,000 ML IV SCH ×3 (00:18→09:13)
[2023-01-26] MEDS ORDERED: NovoLIN R (or HumuLIN R) SUBCUT PRN (02:12)
--- NOTE | 2023-01-26 03:27 | EKG ---
Test Reason : V-Tach Blood Pressure : */* mmHG Vent. Rate : 96 BPM Atrial Rate : 96 BPM P-R Int : 164 ms QRS Dur : 96 ms QT Int : 312 ms P-R-T Axes : 35 8 41 degrees QTc Int : 394 ms Normal sinus rhythm Minimal voltage criteria for LVH, may be normal variant ( [place] product ) Borderline ECG When compared with ECG of 25-JAN-2023 12:37, (Unconfirmed) Nonspecific T wave abnormality no longer evident in Anterior leads Confirmed by Edson Tompkins ([id number]) on 01/26/2023 8:52:07 PM Referred By: Confirmed By: Edson Tompkins
[2023-01-26] MEDS: MORPHINE SULFATE INJ 2 MG INJ IVP PRN (03:46)
[2023-01-26 03:50] LABS: BASOPHILS % (AUTO) 0.3 % (0.2-1.0); EOSINOPHILS # (AUTO) 0.6 x10^3/uL (0.0-0.2); EOSINOPHILS % (AUTO) 3.5 % (0.9-2.9); HEMATOCRIT 28.9 % (42.0-54.0); HEMOGLOBIN 9.7 g/dL (13.5-18.0); LYMPHOCYTES # (AUTO) 0.9 X10^3/uL (1.3-2.9); LYMPHOCYTES % (AUTO) 5.2 % (21.0-51.0); MEAN CORPUSCULAR HGB CONC 33.4 g/dL (33.0-35.0); MEAN CORPUSCULAR VOLUME 89.6 fL (80.0-100.0); MEAN PLATELET VOLUME 7.5 fL (7.4-11.0); MONOCYTES # (AUTO) 1.8 x10^3/uL (0.3-0.8); MONOCYTES % (AUTO) 11.1 % (0.0-13.0); NEUTROPHILS # (AUTO) 13.1 x10^3/uL (2.2-4.8); NEUTROPHILS % (AUTO) 79.9 % (42.0-75.0); PLATELET COUNT 274 X10^3/uL (150.0-450.0); RED BLOOD COUNT 3.22 X10^6/uL (4.7-6.0); RED CELL DISTRIBUTION WIDTH 14.7 % (11.6-16.5); WHITE BLOOD COUNT 16.5 X10^3/uL (3.6-10.0)
[2023-01-26 04:04] LABS: ALBUMIN 2.6 g/dL (3.4-5.0); CALCIUM 8.5 mg/dL (8.5-10.1); CARBON DIOXIDE 27.2 mmol/L (21-32); COR CA(FOR HYPOALB) 9.6 mg/dL (8.5-10.1); CREATININE 4.13 mg/dL (0.70-1.30); POTASSIUM 5.4 mmol/L (3.5-5.1); TOTAL PROTEIN 6.5 g/dL (6.4-8.2)
[2023-01-26] MEDS: DUONEB 0.5 MG/3 MG (3 mL) NEB SCH ×3 (08:00→17:00)
[2023-01-26] MEDS: PULMICORT NEB TX 0.5 MG NEB SCH (08:00)
[2023-01-26] MEDS: COLACE CAP 100 MG PO SCH (08:42)
[2023-01-26] MEDS: BENICAR PO SCH (08:42)
[2023-01-26] MEDS: PriLOSEC PO SCH (08:42)
[2023-01-26] MEDS: NEURONTIN CAP 300 MG PO SCH (08:42)
[2023-01-26] MEDS: MILK OF MAGNESIA PO SCH (08:42)
[2023-01-26] MEDS: THORAZINE TAB 25 MG PO SCH (08:42)
[2023-01-26] MEDS: FLOMAX PO SCH (08:42)
[2023-01-26] MEDS: ROBITUSSIN DM PO SCH ×3 (08:42→16:52)
[2023-01-26] MEDS: INVanz INJ 1 GRAM VIAL 0.5 G in NS 50 ML IV 50 ML IV SCH (08:42)
[2023-01-26] MEDS: DIFLUCAN 100 MG IV (MIX by PHARMACY)* 100 MG/50 ML BAG IV SCH (10:04)
[2023-01-26] MEDS: CLINIMIX 4.25%-5% 1,000 ML with MVI INJ (ADULT) 10 ML IV SCH ×2 (10:31)
--- NOTE | 2023-01-26 12:38 | CT ---
HISTORYAltered mental statusSTUDYCT head without contrastTechnique: Axial noncontrast images with coronal and sagittal reformats. Dose reduction procedures were used with mA/kv adjusted for body size.[id number] les are normal in size shape and position. There are no focal areas of abnormal attenuation to suggest recent or remote CVA, hemorrhage, mass lesion, or extra-axial fluid collection. The visualized sinuses are clear with the exception of mild mucosal inflammatory changes in the left maxillary sinus with there is also a 3.2 x 1.7 cm masslike density containing some areas of likely calcification. MRI is again recommended in order to entirely exclude a left maxillary sinus neoplasm. Calvarium is intact.IMPRESSIONNo significant change from the recent prior examination 01/22/2023Electronically signed by: ANKIT ARCE (Jan 26, 2023 12:37:19)
[2023-01-26] MEDS: APRESOLINE INJ 20 MG VIAL IVP ONE ×2 (14:52→15:37)
[2023-01-26] MEDS ORDERED: TYLENOL 325 MG TAB PO ONE (15:17)
[2023-01-26 16:07] VITALS: TEMP 100.8
[2023-01-26 16:35] VITALS: BP 158/78
[2023-01-26 16:52] VITALS: RESP 18
[2023-01-26 17:19] VITALS: PULSE 93; O2SAT 99
== END 2023-01-26 19:50 | disposition short-term general hospital (02) | DRG 194 ==
LOC: ER 08:08 → MED/SURG 14:13
PROVIDERS: ADMIT Internal Medicine; ATTEND Internal Medicine